=== PATIENT | male | born 1990 | race Caucasian/White ===

== ENCOUNTER 2023-04-05 20:28 | Emergency (ER) | payer MEDICARE ==
[2023-04-05] MEDS ORDERED: CHERRY SYRUP 10 ML UDC PO ONE (21:05)
[2023-04-05] MEDS ORDERED: oxyCODONE 5 MG TABLET PO STA (21:05)
[2023-04-05] MEDS ORDERED: CYCLOBENZAPRINE 10 MG TABLET PO STA (21:05)
[2023-04-05] MEDS ORDERED: DEXAMETHASONE 10 MG/ML VIAL PO STA (21:05)
[2023-04-05] MEDS ORDERED: KETOROLAC 60 MG/2 ML VIAL IM STA (21:05)
--- NOTE | 2023-04-05 21:48 | ED Physician Documentation ---
History of Present Illness - Stated complaint Stated Complaint: BACK PX/LT EAR PX - Chief complaint Chief Complaint: Heent - History obtained from History obtained from: Patient - History of Present Illness Timing: How many days ago (several days) Pain level max: 7 Pain level now: 7 - Additonal information Additional information: 32-year-old male presents to the emergency department stating that he has had left ear pressure for the past 2 weeks and decreased hearing out of the left ear. Had a sore throat originally but that since resolved. Has mild congestion. No other symptoms. No cough. No congestion. No nausea, vomiting, diarrhea. He states that today he was moving heavy objects and felt a "pop" in his back. Worse with movement, better with rest. No loss of bowel or bladder control. No IV drug use. No falls. No other trauma that he is aware of. He states that he has had back problems in the past . No fevers. No IV drug use. Review of Systems Constitutional: denies: Fever, Chills GI: denies: Vomiting, Diarrhea Skin: denies: Rash Musculoskeletal: denies: Neck pain Neurologic: denies: Headache PD PAST MEDICAL HISTORY - Past Medical History Past Medical History: No Cardiovascular: None Respiratory: None Neuro: None Endocrine/Autoimmune: None GI: None : None HEENT: None Psych: None Musculoskeletal: None Derm: None - Past Surgical History Past Surgical History: Yes - Present Medications Home Medications: Ambulatory Orders Medication Instructions Recorded Confirmed Cetirizine HCl/Pseudoephedrine 1 tab PO BID PRN #20 tab 04/05/23 [Zyrtec-D ER 5 mg-120 mg Tablet] Cyclobenzaprine [Flexeril] 10 mg PO TID PRN #20 tablet 04/05/23 Meloxicam [Mobic] 7.5 mg PO BID PRN #20 tablet 04/05/23 Oxycodone HCl/Acetaminophen 1 - 2 each PO Q6H PRN #14 tablet 04/05/23 [Percocet 5-325 mg Tablet] MDD 6 tabs - Allergies Allergies/Adverse Reactions: Allergies Allergy/AdvReac Type Severity Reaction Status Date / Time No Known Drug Allergies Allergy Verified 04/05/23 20:37 - Social History Does the pt smoke?: No Smoking Status: Never smoker Does the pt drink ETOH?: No Does the pt have substance abuse?: No - Immunizations Immunizations are current?: Yes - POLST Patient has POLST: No PD ED PE NORMAL - Vitals Vital signs reviewed: Yes - General General: Alert and oriented X 3, No acute distress - HEENT HEENT: PERRL, Moist mucous membranes, Pharynx benign, Other (The right TM is normal. The left TM is retracted, none mobile. No erythema or fluid) - Neck Neck: Supple, no meningeal sign, No bony TTP - Cardiac Cardiac: RRR, Strong equal pulses - Respiratory Respiratory: No respiratory distress, Clear bilaterally - Abdomen Abdomen: Soft, Non tender, Non distended - Back Back: No spinal TTP (No midline tenderness to palpation or percussion. No step- off or deformity. Mild paraspinal spasm bilateral lower lumbar.) - Derm Derm: Warm and dry - Extremities Extremities: No edema - Neuro Neuro: Alert and oriented X 3, No motor deficit, No sensory deficit, Other (Normal bilateral lower extremity patellar and ankle jerk reflexes. Normal great toe extension bilaterally. no saddle anesthesia) - Psych Psych: Normal mood, Normal affect Results - Vitals Vitals: Vital Signs - 24 hr 04/05/23 04/05/23 20:32 22:05 Temperature 36.3 C L Heart Rate 72 85 Respiratory 16 16 Rate Blood Pressure 157/69 H 152/86 H O2 Saturation 100 99 Oxygen O2 Source Room air PD Medical Decision Making - ED course Complexity details: re-evaluated patient, considered differential (No cauda equina, no spinal epidural abscess, no fracture, no aortic dissection or evidence of aneursym rupture), d/w patient ED course: 32-year-old male with a retracted left eardrum, likely secondary to eustachian tube dysfunction. Will place on decongestants for home. He also has low back pain and spasm, no evidence of cauda equina, epidural abscess. Given a dose of Toradol, dexamethasone, Flexeril and oxycodone. Pain improved. Ambulating well in the emergency department. Will place on pain medication for home. No red flags. Patient counseled regarding signs and symptoms for which I believe and urgent re-evaluation would be necessary. Patient with good understanding of and agreement to plan and is comfortable going home at this time This document was made in part using voice recognition software. While efforts are made to proofread this document, sound alike and grammatical errors may occur. Departure - Departure Disposition: 01 Home, Self Care Clinical Impression: Back strain Qualifiers: Encounter type: initial encounter Qualified Code(s): S39.012A - Strain of muscle, fascia and tendon of lower back, initial encounter Eustachian tube dysfunction Qualifiers: Laterality: left Qualified Code(s): H69.92 - Unspecified Eustachian tube disorder, left ear Condition: Good Instructions: ED Sprain Strain Lumbar Follow-Up: your,doctor in 1 week [Other] Prescriptions: Cyclobenzaprine [Flexeril] 10 mg PO TID PRN #20 tablet PRN Reason: Spasms Meloxicam [Mobic] 7.5 mg PO BID PRN #20 tablet PRN Reason: Pain Oxycodone HCl/Acetaminophen [Percocet 5-325 mg Tablet] 1 - 2 each PO Q6H PRN #14 tablet MDD 6 tabs PRN Reason: pain Cetirizine HCl/Pseudoephedrine [Zyrtec-D ER 5 mg-120 mg Tablet] 1 tab PO BID PRN #20 tab PRN Reason: nasal congestion Comments: Your prescriptions were sent to [facility] in [place]. Use the medication as needed for pain and spasm. Please continue to gently stretch your back at home. You also have what appears to be eustachian tube dysfunction causing a retracted eardrum on the left ear. This should reopen with the decongestants. If your hearing does not improve in the next week, would recommend that you follow-up with an ear nose and throat physician. Please return if you worsen. I am prescribing a short course of narcotic pain medication for you. These are potentially dangerous and addictive medications that should be used carefully. These medications may constipate you. Take an [id number] stool softener (docusate) twice daily with plenty of water while taking these medications. If you go 24 hours without a bowel movement, take [id number] miralax, per package instructions. Do not drink or drive while taking these medications. If you received narcotic or sedating medications while in the emergency department, do not drive for 24 hours. Store this medication in a safe, secure place and out of reach of children. It is a violation of federal law to give or sell this medication to another person or to use in a manner other than prescribed. The ED will not refill narcotic prescriptions, including prescriptions lost or stolen. To dispose of unwanted medications: 1. [facility] at [address] in [place] has a medication drop box. They accept prescription medications (in pill form) Monday through Monday 9:00 a.m. to 5:00 p.m. 2. The [facility] [employer] accepts prescription medications (in pill form only) for disposal year round. Call for more information. 3. Contact the [facility] for the next [facility] sponsored prescription drug collection event. , [phone], or [phone]; Forms: PCP List Discharge Date/Time: 04/05/23 22:08
[2023-04-05 22:17] VITALS: BP 152/86; O2SAT 99
== END 2023-04-05 22:08 | disposition home or self-care (01) ==
LOC: ED 20:28
DX: H69.92 Unspecified Eustachian tube disorder, left ear (principal); S39.012A Strain of muscle, fascia and tendon of lower back, initial encounter; X50.0XXA Overexertion from strenuous movement or load, initial encounter
CPT/HCPCS: 96372; 99283; A9270